=== PATIENT | male | born 1995 | race Caucasian/White ===

== ENCOUNTER 2019-08-23 09:38 | Emergency (ER) | payer SELFPAY ==
[~2019-08-23] VITALS: Ht 180.3 cm; Wt 62.9 kg
[2019-08-23 09:42] VITALS: BP 118/77
== END 2019-08-23 10:20 | disposition home or self-care (01) ==
LOC: ED 10:13
DX: J02.9 Acute pharyngitis, unspecified (principal); F17.200 Nicotine dependence, unspecified, uncomplicated
CPT/HCPCS: 99281